=== PATIENT | female | born 1955 | race Two or more races ===

== ENCOUNTER 2017-04-05 14:32 | Outpatient (CLI) | payer OTHER | END 2017-04-05 14:47 | disposition home or self-care (01) | LOC: MAMO-SONO 14:32 | DX: Z12.31 Encounter for screening mammogram for malignant neoplasm of breast (principal); N61.0 Mastitis without abscess ==

== ENCOUNTER → 2017-08-27 07:49 | Outpatient (CLI) | payer OTHER | END | disposition home or self-care (01) | LOC: LAB 07:49 | DX: I10 Essential (primary) hypertension (principal); E11.9 Type 2 diabetes mellitus without complications; E03.8 Other specified hypothyroidism; E78.2 Mixed hyperlipidemia ==

== ENCOUNTER 2018-06-09 08:36 | Outpatient (CLI) | payer OTHER | END 2018-06-09 08:40 | disposition home or self-care (01) | LOC: MAMO-SONO 08:36 | DX: E89.0 Postprocedural hypothyroidism (principal); E04.1 Nontoxic single thyroid nodule ==

== ENCOUNTER 2019-04-05 08:58 | Outpatient (CLI) | payer OTHER | END 2019-04-05 09:02 | disposition home or self-care (01) | LOC: MAMO-SONO 08:58 | DX: N63.11 Unspecified lump in the right breast, upper outer quadrant (principal) ==

== ENCOUNTER 2019-05-05 09:41 | Outpatient (CLI) | payer OTHER | END 2019-05-05 09:43 | disposition home or self-care (01) | LOC: SONOGRAMA 09:41 → MAMO-SONO 10:15 | DX: R10.2 Pelvic and perineal pain (principal) ==

== ENCOUNTER 2019-10-10 13:19 | Outpatient (CLI) | payer OTHER | END 2019-10-10 13:35 | disposition home or self-care (01) | LOC: NUCLEAR 13:19 | PROVIDERS: ATTEND Internal Medicine Cardiovascular Disease | DX: M81.0 Age-related osteoporosis without current pathological fracture (principal) ==

== ENCOUNTER 2019-11-22 11:18 | Outpatient (CLI) | payer OTHER | END 2019-11-22 11:29 | disposition home or self-care (01) | LOC: RAD 11:18 | PROVIDERS: ATTEND Ophthalmology | DX: R91.8 Other nonspecific abnormal finding of lung field (principal) ==

== ENCOUNTER 2019-11-30 14:40 | Outpatient (CLI) | payer OTHER | END 2019-11-30 14:48 | disposition home or self-care (01) | LOC: SONOGRAMA 14:40 → MAMO-SONO 14:45 → SONOGRAMA 14:48 | PROVIDERS: ATTEND Specialist | DX: D21.21 Benign neoplasm of connective and other soft tissue of right lower limb, including hip (principal); N63.21 Unspecified lump in the left breast, upper outer quadrant ==

== ENCOUNTER 2020-07-03 13:59 | Outpatient (CLI) | payer OTHER | END 2020-07-03 14:00 | disposition home or self-care (01) | LOC: NUCLEAR 13:59 | PROVIDERS: ATTEND Internal Medicine Endocrinology, Diabetes & Metabolism | DX: M85.80 Other specified disorders of bone density and structure, unspecified site (principal); M81.0 Age-related osteoporosis without current pathological fracture ==

== ENCOUNTER 2020-09-08 08:38 | Outpatient (CLI) | payer OTHER | END 2020-09-08 08:39 | disposition home or self-care (01) | LOC: SONOGRAMA 08:38 | PROVIDERS: ATTEND Internal Medicine Gastroenterology | DX: R10.84 Generalized abdominal pain (principal); K76.0 Fatty (change of) liver, not elsewhere classified ==

== ENCOUNTER 2020-09-17 07:44 | Outpatient (CLI) | payer OTHER | END 2020-09-17 07:46 | disposition home or self-care (01) | LOC: NUCLEAR 07:44 | PROVIDERS: ATTEND Internal Medicine Hematology & Oncology | DX: C50.412 Malignant neoplasm of upper-outer quadrant of left female breast (principal) | CPT/HCPCS: 78816; A9552 ==

== ENCOUNTER 2021-06-15 08:00 | Outpatient (CLI) | payer OTHER | END 2021-06-15 08:30 | disposition home or self-care (01) | LOC: PPH VACUNA 08:00 | PROVIDERS: ATTEND Emergency Medicine Pediatric Emergency Medicine | DX: Z23 Encounter for immunization (principal) ==

== ENCOUNTER 2021-08-19 05:30 | Day surgery (SDC) | payer OTHER ==
[~2021-08-19] VITALS: Ht 165.1 cm; Wt 56.7 kg
[~2021-08-19 05:30] MED LIST: ANASTROZOLE1 MG PO; LIPITOR20 MG PO; MICARDIS80 MG PO; MULTIPLE VITAM1 EAC2 PO; SYNTHROID88 MCG PO
== END 2021-08-19 10:50 | disposition home or self-care (01) ==
LOC: CIR.AMB 05:30 → ADM 07:45 → CIR.AMB 10:50
PROVIDERS: ATTEND Surgery Surgery of the Hand
DX: D49.2 Neoplasm of unspecified behavior of bone, soft tissue, and skin (principal); Z20.822 Contact with and (suspected) exposure to COVID-19; I10 Essential (primary) hypertension; E78.00 Pure hypercholesterolemia, unspecified; Z86.16 Personal history of COVID-19; E07.9 Disorder of thyroid, unspecified; Z85.3 Personal history of malignant neoplasm of breast

== ENCOUNTER 2022-02-17 10:04 | Outpatient (CLI) | payer OTHER | END 2022-02-17 10:14 | disposition home or self-care (01) | LOC: PPH VACUNA 10:04 | PROVIDERS: ATTEND Emergency Medicine Pediatric Emergency Medicine | DX: Z23 Encounter for immunization (principal) ==

== ENCOUNTER 2022-07-05 12:55 | Outpatient (CLI) | payer OTHER | END 2022-07-05 12:57 | disposition home or self-care (01) | LOC: NUCLEAR 12:55 | PROVIDERS: ATTEND Specialist | DX: M81.0 Age-related osteoporosis without current pathological fracture (principal) ==

== ENCOUNTER 2022-10-13 07:38 | Outpatient (CLI) | payer OTHER | END 2022-10-13 07:47 | disposition home or self-care (01) | LOC: NUCLEAR 07:38 | PROVIDERS: ATTEND Internal Medicine Hematology & Oncology | DX: C50.812 Malignant neoplasm of overlapping sites of left female breast (principal) ==

== ENCOUNTER 2023-02-16 11:57 | Outpatient (CLI) | payer OTHER | END 2023-02-16 12:08 | disposition home or self-care (01) | LOC: RAD 11:57 | PROVIDERS: ATTEND Specialist | DX: M77.11 Lateral epicondylitis, right elbow (principal) ==

== ENCOUNTER 2023-09-02 10:09 | Outpatient (CLI) | payer OTHER | END 2023-09-02 10:15 | disposition home or self-care (01) | LOC: RAD 10:09 | DX: M77.11 Lateral epicondylitis, right elbow (principal) ==

== ENCOUNTER 2024-03-07 08:23 | Outpatient (CLI) | payer OTHER | END 2024-03-07 08:33 | disposition home or self-care (01) | LOC: TOM 08:23 | PROVIDERS: ATTEND Internal Medicine Cardiovascular Disease | DX: R10.9 Unspecified abdominal pain (principal); K57.30 Diverticulosis of large intestine without perforation or abscess without bleeding ==

== ENCOUNTER 2024-03-27 13:01 | Outpatient (CLI) | payer OTHER | END 2024-03-27 13:03 | disposition home or self-care (01) | LOC: SONOGRAMA 13:01 | PROVIDERS: ATTEND Student in an Organized Health Care Education/Training Program | DX: R10.2 Pelvic and perineal pain (principal) ==

== ENCOUNTER → 2024-08-22 11:09 | Outpatient (CLI) | payer OTHER | END | disposition home or self-care (01) | LOC: NUCLEAR 11:09 | PROVIDERS: ATTEND Specialist | DX: M81.0 Age-related osteoporosis without current pathological fracture (principal) ==

== ENCOUNTER 2024-09-19 12:40 | Emergency (ER) | payer OTHER ==
[~2024-09-19] VITALS: Ht 162.6 cm; Wt 54.4 kg
[2024-09-19 13:21] VITALS: BP 127/72; O2SAT 98
[2024-09-19] MEDS ORDERED: MAG HYDROX/ALUMINUM HYD/SIMETH 30 ML BLIST.PACK PO ONE ×2 (15:30→16:44)
[2024-09-19] MEDS ORDERED: LIDOCAINE HCL 120 ML ML MM ONE (15:30)
[2024-09-19] MEDS ORDERED: LIDOCAINE HCL VISCOUS 20MG/ML BLIST 15ML MM ONE (16:44)
[2024-09-19 17:18] LABS: BASO % 0.8 % (0.1-1.2); COVID-19 AG NEGATIVE (NEGATIVE); EOS # 0.25 (0.04-0.54); EOS % 3.3 % (0.7-7.0); LYMPH # 2.28 (1.18-3.74); LYMPH % 29.8 % (19.3-53.1); MEAN PLATELET VOLUME 10.00 fl (9.4-12.4); MONO # 0.58 (0.24-0.82); MONO % 7.6 % (4.7-12.5); NEUT # 4.36 (1.56-6.13); NEUT % 56.9 % (34.0-71.1); RED CELL DISTRIBUTION WIDTH 12.9 % (11.6-14.4)
[2024-09-19 17:56] LABS: BAND MAN 1.0 %; EOSINOPHIL MAN 1.0 %; LYMPHOCYTE MAN 24.0 %; METAMYELOCYTE 1.0 %; MONOCYTE MAN 9.0 %; NEUTROPHILS MAN 63.0 %
[2024-09-19] MEDS ORDERED: CHLORASEPTIC177 M2 MM (18:19)
[2024-09-19] MEDS ORDERED: SORE THROAT LO1 EACH MM (18:19)
== END 2024-09-19 19:27 | disposition home or self-care (01) ==
LOC: ER 12:45
PROVIDERS: Preventive Medicine Public Health & General Preventive Medicine
DX: J37.0 Chronic laryngitis (principal); J02.9 Acute pharyngitis, unspecified; Z20.822 Contact with and (suspected) exposure to COVID-19; E03.8 Other specified hypothyroidism

== ENCOUNTER 2024-10-19 11:36 | Outpatient (CLI) | payer OTHER ==
[~2024-10-19 11:36] MED LIST changes: +CHLORASEPTIC177 M2 MM; +SORE THROAT LO1 EACH MM
== END 2024-10-19 11:44 | disposition home or self-care (01) ==
LOC: SONOGRAMA 11:36
PROVIDERS: ATTEND Internal Medicine
DX: E04.2 Nontoxic multinodular goiter (principal)

== ENCOUNTER 2024-11-29 07:13 | Outpatient (CLI) | payer OTHER | END 2024-11-29 07:14 | disposition home or self-care (01) | LOC: TOM 07:13 | DX: R22.1 Localized swelling, mass and lump, neck (principal) ==